=== PATIENT | female | born 1980 | race Two or more races ===

== ENCOUNTER 2020-09-15 19:20 | Emergency (ER) | payer BC, OTHER ==
[~2020-09-15] VITALS: Ht 167.6 cm; Wt 76.0 kg
[2020-09-15] MEDS ORDERED: FLUORESCEIN SODIUM 1MG/STRIP LEFTEYE ONE (20:30)
[2020-09-15] MEDS ORDERED: TETRACAINE 0.5% OPHTH DROPS 4ML LEFTEYE ONE (20:30)
[2020-09-15] MEDS ORDERED: IBUP-2029 MT (21:39)
[2020-09-15] MEDS ORDERED: ERYT1OIN6 EACHEYE (21:39)
[2020-09-15 21:50] VITALS: BP 132/71
== END 2020-09-15 21:54 | disposition home or self-care (01) ==
LOC: ER 19:20
DX: T26.12XA Burn of cornea and conjunctival sac, left eye, initial encounter (principal); S05.02XA Injury of conjunctiva and corneal abrasion without foreign body, left eye, initial encounter; X10.2XXA Contact with fats and cooking oils, initial encounter; Y93.G1 Activity, food preparation and clean up; Y92.9 Unspecified place or not applicable; Z98.890 Other specified postprocedural states
CPT/HCPCS: 99283